=== PATIENT | male | born 2000 | race Caucasian/White ===

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

== ENCOUNTER 2018-01-03 10:54 | Day surgery (SDC) | payer OTHER ==
[~2018-01-03 10:54] MED LIST changes: +Buffered Lidocaine 0.9% SYRIN* 5 ML/SYR SYRINGE INTRADERM ONE; +Sodium Citrate/Citric Acid* 15 ML UDC PO ONE; -hydrOXYzine HCL TAB* 50 MG ONE
[2018-01-03] MEDS ORDERED: Sodium Citrate/Citric Acid* 15 ML UDC ONE (10:59)
[2018-01-03] MEDS ORDERED: ceFAZolin 2 GM PREMIX in ORs 2 GM/50 ML BAG IVPB ONE (10:59)
[2018-01-03] MEDS ORDERED: fentaNYL* 50 MCG/ML 2 ML VIAL (100 MCG VIAL) ONE (11:30)
[2018-01-03] MEDS ORDERED: Lidocaine 1% INJ* 10 MG/ML 30 ML SDV ONE (11:35)
[2018-01-03] MEDS ORDERED: ROPIVACAINE 5 MG/ML 30 ML BTL (0.5%) ONE (11:35)
[2018-01-03] MEDS ORDERED: Propofol* 10 MG/ML 20 ML BTL IV PUSH ONE (11:54)
[2018-01-03] MEDS ORDERED: Dexamethasone IV* 4 MG/ML 1 ML (4 MG) ONE (11:54)
[2018-01-03] MEDS ORDERED: Ketorolac INJ* 30 MG/ML 1 ML VIAL ONE (11:54)
[2018-01-03] MEDS ORDERED: Lidocaine 2% PF * 5 ML VIAL ONE (11:54)
[2018-01-03] MEDS ORDERED: Naloxone* 0.4 MG/ML 1 ML VIAL IV PRN (12:06)
[2018-01-03] MEDS ORDERED: fentaNYL* 50 MCG/ML 2 ML VIAL (100 MCG VIAL) IV PRN (12:06)
[2018-01-03 13:04] VITALS: BP 120/78
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
== END 2018-01-03 13:18 | disposition home or self-care (01) ==
LOC: OREAST 10:54
PROVIDERS: ATTEND Orthopaedic Surgery
DX: S62.306A Unspecified fracture of fifth metacarpal bone, right hand, initial encounter for closed fracture (principal); W22.8XXA Striking against or struck by other objects, initial encounter; Y92.9 Unspecified place or not applicable; Z72.0 Tobacco use; F41.9 Anxiety disorder, unspecified
CPT/HCPCS: 76000; A9270-GY; C1713; J0690; J1100; J1885; J2704; J2795; J3010

== ENCOUNTER 2018-10-30 11:08 | Emergency (ER) | payer SELFPAY ==
[2018-10-30 11:30] VITALS: BP 98/58
--- NOTE | 2018-10-30 12:36 | UC ---
Throat Pain/Nasal Ayden HPI - HPI Summary HPI Summary: Patient is a 18yo male presenting with nasal congestion and sore throat x2 days. He says his congestion began with pain in his sinuses that has since resolved. Notes nasal discharge and loss of voice since last night. Notes headache and fatigue. Denies ear pain. Denies cough, shortness of breath, and wheezing. Denies fever and chills. Denies n/v/d. Says he has take ibuprofen with some relief. - History of Current Complaint Chief Complaint: UCRespiratory Stated Complaint: CONGESTED Time Seen by Provider: 10/30/18 11:58 Hx Obtained From: Patient Onset/Duration: Lasting Days Severity: Mild Pain Intensity: 1 Pain Scale Used: 0-10 Numeric Cough: None - Allergies/Home Medications Allergies/Adverse Reactions: Allergies Allergy/AdvReac Type Severity Reaction Status Date / Time seasonal allergies Allergy Mild Eyes Uncoded 10/30/18 11:30 Itchy/Swollen/Red/Watery Home Medications: Home Medications NK [No Home Medications Reported] 10/30/18 [History Confirmed 10/30/18] PMH/Surg Hx/FS Hx/Imm Hx - Surgical History Surgical History: Yes Surgery Procedure, Year, and Place: Tonsillectomy 2001 - Family History Known Family History: Positive: Other, Non-Contributory Family History: Father - Allergies and chronic sinusitis - Social History Alcohol Use: Occasionally Substance Use Type: Marijuana Substance Use Comment - Amount & Last Used: daily Smoking Status (MU): Current Some Day Smoker Type: eCigarettes Amount Used/How Often: 12 times daily Household Exposure Type: Cigarettes - Immunization History Most Recent Influenza Vaccination: not this season Most Recent Pneumonia Vaccination: none Vaccination Up to Date: Yes Review of Systems All Other Systems Reviewed And Are Negative: No Constitutional: Positive: Fatigue. Negative: Fever, Chills Eyes: Positive: Negative ENT: Positive: Sore Throat, Nasal Discharge, Sinus Congestion, Sinus Pain/ Tenderness - notes sinus pain has resolved since initial onset. Negative: Ear Ache Respiratory: Positive: Negative. Negative: Shortness Of Breath, Cough Cardiovascular: Positive: Negative Gastrointestinal: Negative: Abdominal Pain, Vomiting, Diarrhea, Nausea Genitourinary: Positive: Negative Musculoskeletal: Positive: Myalgia Neurological: Positive: Headache Physical Exam Triage Information Reviewed: Yes Appearance: Well-Appearing, Well-Nourished Vital Signs: Initial Vital Signs Temp 98 F 10/30/18 11:24 Pulse 85 10/30/18 11:24 Resp 16 10/30/18 11:24 BP 98/58 10/30/18 11:24 Pulse Ox 98 10/30/18 11:24 Vital Signs Reviewed: Yes Eyes: Positive: Conjunctiva Clear ENT: Positive: Pharyngeal erythema, Nasal congestion, Nasal drainage, TMs normal , Hoarse voice. Negative: TM bulging, TM dull, TM red, Tonsillar swelling, Tonsillar exudate Neck exam: Normal Neck: Positive: Supple, Nontender, No Lymphadenopathy Respiratory: Positive: Lungs clear, Normal breath sounds. Negative: Crackles, Wheezing Cardiovascular Exam: Normal Cardiovascular: Positive: RRR, Pulses Normal Throat Pain/Nasal Course/Dx - Course Course Of Treatment: Discussed with patient to continue taking over the counter pain and cough/cold medications as directed for relief of upper respiratory symptoms. Patient should rest his voice as much as possible and drink plenty of fluids. He should return or follow up with PCP if symptoms worsen or do not resolve within the next week. Patient voiced understanding and agreed to treatment plan. - Differential Dx/Diagnosis Provider Diagnosis: Laryngitis, Upper respiratory infection Discharge ED - Sign-Out/Discharge Documenting (check all that apply): Patient Departure All imaging exams completed and their final reports reviewed: No Studies - Discharge Plan Condition: Stable Disposition: HOME Patient Education Materials: Laryngitis (ED), Upper Respiratory Infection (ED) Referrals: Radha Mackay DO [Primary Care Provider] - If Needed Additional Instructions: Continue taking over the counter pain and cough/cold medications as directed for relief of upper respiratory symptoms. Rest your voice as much as possible and drink plenty of fluids. Return if symptoms worsen or do not resolve within the next week. - Billing Disposition and Condition Condition: STABLE Disposition: Home
== END 2018-10-30 12:41 | disposition home or self-care (01) ==
LOC: UCEAST 11:08
DX: J06.9 Acute upper respiratory infection, unspecified (principal); J04.0 Acute laryngitis; F17.210 Nicotine dependence, cigarettes, uncomplicated
CPT/HCPCS: 99211; G0463

== ENCOUNTER 2019-05-11 15:15 | Emergency (ER) | payer OTHER ==
--- OUTSIDE RECORDS SUMMARY | 2019-05-11 15:29 | XMS REPORT | Continuity of Care Document ---
:2000 External Reference #:[id number] Author Name Radha Mackay D.O. Address [address] [place] [address] Care Team Providers Name Role Phone Radha Mackay DO - Pediatrics Care Team Information Mold Technician [facility] Care Team Information Mold Technician [phone] Caty Das M.D. - Orthopaedic Care Team Information Mold Technician Surgery Problems Active Problems Provider Date Pectus excavatum Jacob Montiel M.D. Onset: 06/10/2013 Disorders of initiating and maintaining Radha Mackay D.O. Onset: 01/06/2018 sleep Moderate recurrent major depression Radha Mackay D.O. Onset: 01/06/2018 Social History Type Date Description Comments Sex Unknown Tobacco Use Start: Unknown Patient has never smoked Smoking Status Reviewed: 12/06/17 Patient has never smoked Allergies, Adverse Reactions, Alerts Description No Known Drug Allergies Medications Active Medications SIG Qnty Indications Ordering Date Provider Albuterol Sulfate HFA inhale 2 puffs 8.500gm R06.2 Radha Mackay, 2019 every 4 - 6 D.O. 108(90Base) mcg/Act hours as needed Aerosol Bupropion 1 by mouth every 30tabs F33.1 Radha Mackay, 03/24/2019 Hydrochloride ER (XL) day D.O. 150mg Tablets ER 24HR Mirtazapine 1 tablets at 30tabs F51.01 Radha Mackay, 01/06/2018 15mg Tablets bedtime D.O. Immunizations CPT Code Status Date Vaccine Lot # [id number] Given 08/25/2015 Meningococcal A,[id number],Y,W135 (Menactra) [id number] Preservative Free 06022 Given 01/22/2014 Flu Mist Quadrivalent [id number] 22647 Given 12/25/2012 Flu Mist Quadrivalent [id number] 14524 Given 12/19/2011 Flu Vacc Preserv Free Trivalent 3+yrs [id number] 28663 Given 06/19/2011 HPV 4 Gardasil 4 [id number] 79525 Given 02/06/2011 HPV 4 Gardasil 4 [id number] 90301 Given 12/06/2010 Flu Vacc Preserv Free Trivalent 3+yrs [id number] 28738 Given 12/06/2010 HPV 4 Gardasil 4 [id number] 90479 Given 11/28/2009 Meningococcal A,C,Y,W135 (Menactra) [id number] Preservative Free 58769 Given 11/28/2009 Flu Vacc Preserv Free Trivalent 3+yrs [id number] 70067 Given 11/19/2008 TdaP Immunization Age 7+ [id number] 38092 Given 11/19/2008 Flu Vacc Preserv Free Trivalent 3+yrs [id number] 37478 Given 11/20/2007 Varicella (Chicken Pox) Immunization [id number] 67670 Given 07/09/2002 DTaP Immunization under age 7 28299 Given 07/09/2002 MMR Virus Immunization 84780 Given 07/09/2002 Poliomyelitis Immunization 99706 Given 11/10/1999 DTaP & Hib Immunization 85202 Given 11/10/1999 Poliomyelitis Immunization 78958 Given 05/03/1999 Varicella (Chicken Pox) Immunization 54629 Given 05/03/1999 MMR Virus Immunization 12325 Given 1998 Hib/Hep B Combination Vaccine 60845 Given 1998 DTaP Immunization under age 7 52086 Given 1998 Hib Vaccine 20666 Given 1998 Rotavirus Vaccine 14369 Given 1998 DTaP Immunization under age 7 30386 Given 1998 Poliomyelitis Immunization 88868 Given 1998 Hib/Hep B Combination Vaccine 68591 Given 1998 Poliomyelitis Immunization 22309 Given 1998 DTaP Immunization under age 7 33885 Given 1998 Rotavirus Vaccine 80366 Given 1998 Hepatitis B Imm Age 0 to 19yr Vital Signs Date Vital Result Comment 03/24/2019 7:58am Height 73 inches 6'1" Weight 143.00 lb Weight 64.865 kg Heart Rate 103 /min BP Systolic 103 mmHg BP Diastolic 69 mmHg BMI (Body Mass Index) 18.9 kg/m2 03/11/2018 9:14am Height 72.75 inches 6'0.75" Height Percentile 87 % Weight 133.00 lb Weight 60.329 kg Weight Percentile 15th Heart Rate 81 /min BP Systolic 125 mmHg BP Diastolic 76 mmHg BMI (Body Mass Index) 17.7 kg/m2 Body Mass Index Percentile 3 % Results Test Acquired Date Facility Test Result H/L Range Note Urinalysis Profile 03/06/2019 [facility] Urine Color Yellow [address] [place] [address] [phone] Urine Appearance Clear Urine Specific [place] 1.011 Normal 1.010-1.030 Urine pH 7.0 Normal 5-9 Urine Urobilinogen Negative Negative Urine Ketones Negative Negative Urine Protein Negative Negative Urine Leukocytes Negative Negative Urine Blood Negative Negative Urine Nitrite Negative Negative Urine Bilirubin Negative Negative Urine Glucose Negative Negative CBC Auto 03/06/2019 [facility] White Blood 9.8 10^3/uL Normal 3.5-10.[address] [place] [address] [phone] Red Blood Count 4.79 10^6/uL Normal 4.18-5.48 Hemoglobin 15.2 g/dL Normal 14.0-18.0 Hematocrit 45 % Normal 42-52 Mean Corpuscular Volume 93 fL Normal 80-94 Mean Corpuscular Hemoglobin 32 pg High 27-31 Mean Corpuscular HGB Conc 34 g/dL Normal 31-36 Red Cell Distribution Width 14 % Normal 10-15 Platelet Count 212 10^3/uL Normal 150-450 Mean Platelet Volume 8.1 fL Normal 7.4-10.4 Abs Neutrophils 6.9 10^3/uL Normal 1.5-7.7 Abs Lymphocytes 2.1 10^3/uL Normal 1.0-4.8 Abs Monocytes 0.7 10^3/uL Normal 0-0.8 Abs Eosinophils 0.1 10^3/uL Normal 0-0.6 Abs Basophils 0.0 10^3/uL Normal 0-0.2 Abs Nucleated RBC 0.0 10^3/uL Granulocyte % 70.1 % Lymphocyte % 21.4 % Monocyte % 7.0 % Eosinophil % 1.1 % Basophil % 0.4 % Nucleated Red Blood Cells % 0.0 Urine Drug 03/06/2019 [facility] Urine None Detected None Detect SCR ED & [address] [facility] [place] [address] Screen [phone] Urine Barbiturates Screen None Detected None Detect Urine Benzodiazepine Screen None Detected None Detect Urine Cannabinoids Screen Presumptive Posi <SEE NOTE> Abnormal None Detect 1 Urine Cocaine Screen None Detected None Detect Urine Opiates Screen Presumptive Posi <SEE NOTE> Abnormal None Detect 2 Urine Phencyclidine Screen None Detected None Detect 3 Laboratory test 03/06/2019 [facility] Lactic Acid 1.4 mmol/L Normal 0.5-2.0 4 finding [address] [place] [address] [phone] Comp Metabolic 03/06/2019 [facility] Sodium 138 mmol/L Normal 135-145 Panel [address] [place] [address] [phone] Potassium 3.7 mmol/L Normal 3.5-5.0 Chloride 104 mmol/L Normal 101-111 Co2 Carbon Dioxide 26 mmol/L Normal 22-32 Anion Gap 8 mmol/L Normal 2-11 Glucose 96 mg/dL Normal 70-100 Blood Urea Nitrogen 9 mg/dL Normal 6-24 Creatinine 0.88 mg/dL Normal 0.67-1.17 BUN/Creatinine Ratio 10.2 Normal 8-20 Calcium 9.9 mg/dL Normal 8.6-10.3 Total Protein 7.1 g/dL Normal 6.4-8.9 Albumin 4.5 g/dL Normal 3.2-5.2 Globulin 2.6 g/dL Normal 2-4 Albumin/Globulin Ratio 1.7 Normal 1-3 Total Bilirubin 0.40 mg/dL Normal 0.2-1.0 Alkaline Phosphatase 103 U/L Normal 34-104 Alt 11 U/L Normal 7-52 Ast 17 U/L Normal 13-39 Egfr Non- 110.4 >60 Egfr 133.6 >60 5 Laboratory test 03/06/2019 [facility] Acetaminophen < 15 g/mL [address] [place] [address] [phone] Alcohol < 10 mg/dL Normal <10 Salicylate < 2.50 mg/dL <30 TSH (Thyroid Stim Horm) 3.20 mcIU/mL Normal 0.34-5.60 1 Presumptive Positive Presumptive positive results are unconfirmed. 2 Presumptive Positive Presumptive positive results are unconfirmed. 3 The urine specimen was tested at the listed cutoffs: Drug class test level (ng/mL) Amphetamines 500 Barbiturates 200 Benzodiazepine metabolites 200 Cocaine metabolites 150 Cannabinoids 50 Opiates 300 Pcp 25 Specimen was received without chain of custody. Results should be used for medical purposes only. 4 [facility] Severe Sepsis and Septic Shock Management Bundle Measure requires all lactic acids initially measuring >2.0 mmol/L be repeated. 5 Because ethnic data is not always [...] concentration: <50 ug/mL Toxic concentration: >120 ug/mL Procedures Description No Information Available Medical Devices Description No Information Available Encounters Description No Information Available Assessments Date Code Description Provider 03/24/2019 F33.1 Major depressive disorder, recurrent, moderate Radha Mackay D.O. 03/24/2019 F51.01 Primary insomnia Radha Mackay D.O. Plan of Treatment 03/24/2019 - Radha Mackay D.O.F33.1 Major depressive disorder, recurrent, moderateNew Medication:Bupropion Hydrochloride ER (XL) 150 mg - 1 by mouth every dayFollow up:[facility].01 Primary insomnia Functional Status Description No Information Available Mental Status Description No Information Available Referrals Description No Information Available
[2019-05-11 15:52] VITALS: BP 113/69
--- NOTE | 2019-05-11 15:57 | UC ---
Bite Injury/Animal HPI - HPI Summary HPI Summary: 19-year-old male comes in with chief complaint of a tick bite with a rash. 4 to 5 days ago noticed a tick attached to his skin on the left lower quadrant of his abdomen which he pulled out. He thinks that had stayed in there. In the last day or 2 he's developed a rash around the tick bite that does itch. Fevers or chills feels well otherwise. - History of Current Complaint Chief Complaint: UCSkin Stated Complaint: TICK BITE Time Seen by Provider: 05/11/19 15:34 Pain Intensity: 0 - Allergies/Home Medications Allergies/Adverse Reactions: Allergies Allergy/AdvReac Type Severity Reaction Status Date / Time No Known Drug Allergies Allergy See Comment Verified 05/11/19 15:39 seasonal allergies Allergy Mild Eyes Uncoded 05/11/19 15:39 Itchy/Swollen/Red/Watery Home Medications: Home Medications Bupropion XL* [Wellbutrin XL *] 150 mg PO 0900 #14 tab 03/13/19 [Rx Confirmed ] Mirtazapine TAB* [Remeron TAB*] 7.5 mg PO BEDTIME PRN #14 tab 03/13/19 [Rx Confirmed 05/11/19] Naloxone Nasal [place]* [Narcan Nasal [place]] 4 mg INTRANASAL .REPEAT Q2M to Q3M PRN #1 nasal.spr 03/13/19 [Rx Confirmed 05/11/19] DOXYcycline CAP(*) [DOXYcycline 100MG CAP(*)] 100 mg PO BID #28 cap 05/11/19 [Rx ] PMH/Surg Hx/FS Hx/Imm Hx Previously Healthy: Yes - Surgical History Surgical History: Yes Surgery Procedure, Year, and Place: Tonsillectomy 2001. right hand repair - Family History Known Family History: Positive: Unknown - Adopted Family History: Father - Allergies and chronic sinusitis - Social History Alcohol Use: Occasionally Alcohol Amount: " A couple of drinks weekly, not a lot" Substance Use Type: Marijuana Substance Use Comment - Amount & Last Used: daily Smoking Status (MU): Current Some Day Smoker Type: eCigarettes Amount Used/How Often: 12 times daily Household Exposure Type: Cigarettes - Immunization History Most Recent Influenza Vaccination: 03/13/19 Most Recent Pneumonia Vaccination: none Vaccination Up to Date: Yes Review of Systems All Other Systems Reviewed And Are Negative: Yes Constitutional: Positive: Negative Skin: Positive: Other - see hpi Eyes: Positive: Negative ENT: Positive: Negative Respiratory: Positive: Negative Cardiovascular: Positive: Negative Gastrointestinal: Positive: Negative Motor: Positive: Negative Neurovascular: Positive: Negative Musculoskeletal: Positive: Negative Neurological/Mental Status: Positive: Negative Psychological: Positive: Negative Is Patient Immunocompromised?: No Physical Exam Triage Information Reviewed: Yes Appearance: Well-Appearing, No Pain Distress, Well-Nourished Vital Signs: Initial Vital Signs Temp 98.8 F 05/11/19 15:51 Pulse 95 05/11/19 15:51 Resp 18 05/11/19 15:51 BP 113/69 05/11/19 15:51 Pulse Ox 97 05/11/19 15:51 Vital Signs Reviewed: Yes Eye Exam: Normal Eyes: Positive: Conjunctiva Clear Neck: Positive: Supple Respiratory: Positive: No respiratory distress Musculoskeletal: Positive: Strength Intact, ROM Intact Neurological: Positive: Alert, Muscle Tone Normal Psychological: Positive: Age Appropriate Behavior Skin: Positive: Other - Left lower quadrant of the abdomen there is a 3 cm elliptical area of erythema in the center of his pinpoint area with scab of the 1 mm black foreign body in the middle. Bite Injury Course/Dx - Course Course Of Treatment: With a tick bite with rash associated with this this can be early Lyme disease therefore I'm treating with doxycycline 100 mg by mouth twice a day for 14 days. Patient's to get reevaluated is getting worse or any questions or concerns. - Differential Dx/Diagnosis Provider Diagnosis: Tick bite of abdomen Discharge ED - Sign-Out/Discharge Documenting (check all that apply): Patient Departure All imaging exams completed and their final reports reviewed: No Studies - Discharge Plan Condition: Stable Disposition: HOME Prescriptions: DOXYcycline CAP(*) [DOXYcycline 100MG CAP(*)] 100 mg PO BID #28 cap Patient Education Materials: Lyme Disease (ED), Tick Bite (ED) Referrals: Radha Mackay DO [Primary Care Provider] - Additional Instructions: FOLLOW UP WITH YOUR DOCTOR IF NOT COMPLETELY IMPROVED. GET REEVALUATED IF NOT IMPROVED OR WORSE; SYMPTOMS OF LYME DISEASE, YOU FEEL ILL OR ANY QUESTIONS OR CONCERNS. - Billing Disposition and Condition Condition: STABLE Disposition: Home
== END 2019-05-11 16:05 | disposition home or self-care (01) ==
LOC: UCEAST 15:15
DX: S30.861A Insect bite (nonvenomous) of abdominal wall, initial encounter (principal); R21 Rash and other nonspecific skin eruption; W57.XXXA Bitten or stung by nonvenomous insect and other nonvenomous arthropods, initial encounter; Y92.9 Unspecified place or not applicable; Z72.0 Tobacco use
CPT/HCPCS: 99212; G0463

== ENCOUNTER 2019-12-24 13:15 | Inpatient (IN) ==
[2019-12-24] MEDS ORDERED: LORazepam 2 mg VIAL 1 ml ONE (13:33)
[2019-12-24] MEDS ORDERED: diPHENhydraMINE IV 50 MG/ML 1 ml VIAL (BENADRYL) ONE ×2 (13:45→16:54)
[2019-12-24] MEDS ORDERED: Haloperidol 5 mg/ml SDV IV/IM 5 MG/ML AMP ONE ×2 (13:45→16:54)
[2019-12-24 14:22] LABS: ABS Eosinophils 0.1 10^3/ul (0-0.6); ABS Lymphocytes 1.7 10^3/ul (1.0-4.8); ABS Monocytes 0.3 10^3/ul (0-0.8); ABS Neutrophils 2.6 10^3/ul (1.5-7.7); Eosinophil % 1.9 %; Hematocrit 44 % (42-52); Lymphocyte % 35.7 %; Mean Corpuscular HGB Conc 34 g/dL (31-36); Mean Corpuscular Hemoglobin 33 pg (27-31); Mean Corpuscular Volume 96 fL (80-94); Platelet Count 237 10^3/uL (150-450); Red Blood Count 4.57 10^6 /uL (4.18-5.48); Red Cell Distribution Width 13 % (10-15); White Blood Count 4.7 10^3/uL (3.5-10.8)
[2019-12-24 15:11] LABS: ALT 14 U/L (7-52); AST 21 U/L (13-39); Albumin 4.5 g/dL (3.2-5.2); Albumin/Globulin Ratio 1.8 (1-3); Alkaline Phosphatase 101 U/L (34-104); Anion Gap 14 mmol/L (2-11); BUN/Creatinine Ratio 11.1 (8-20); Blood Urea Nitrogen 11 mg/dL (6-24); CO2 Carbon Dioxide 21 mmol/L (22-32); Calcium 9.6 mg/dL (8.6-10.3); Chloride 106 mmol/L (101-111); EGFR African American 115.5 (>60); EGFR Non-African American 95.4 (>60); Globulin 2.5 g/dL (2-4); Glucose 67 mg/dL (70-100); Potassium 3.6 mmol/L (3.5-5.0); Sodium 141 mmol/L (135-145)
[2019-12-24 15:21] LABS: Acetaminophen < 15 mcg/mL; Alcohol, S 137 mg/dL (<10); Salicylate < 2.50 mg/dL (<30)
[2019-12-24 15:26] LABS: TSH Ultra Thyroid Stim Horm 0.75 mcIU/mL (0.34-5.60)
[2019-12-24] MEDS ORDERED: Dextrose 50% VIAL 50 ml IV PRN (17:52)
[2019-12-25] MEDS ORDERED: Nicotine GUM 4MG FRUIT FLAVOR PO PRN (08:24)
[2019-12-25] MEDS: Vitamin THERAPEUTIC TAB PO SCH (12:52)
[2019-12-26 08:21] LABS: HDL Cholesterol 60.9 mg/dL
[2019-12-26] MEDS: Vitamin THERAPEUTIC TAB PO SCH (11:35)
[2019-12-26] MEDS: Al Hydrox/Mg Hydrox/Simet LIQ 30 ML UDC PO PRN (17:08)
[2019-12-27] MEDS: Vitamin THERAPEUTIC TAB PO SCH (07:46)
[2019-12-27] MEDS: Al Hydrox/Mg Hydrox/Simet LIQ 30 ML UDC PO PRN (19:02)
[2019-12-28] MEDS: Vitamin THERAPEUTIC TAB PO SCH (08:14)
[2019-12-29] MEDS: Vitamin THERAPEUTIC TAB PO SCH (07:47)
[2019-12-29] MEDS ORDERED: Benzocaine (DENTAL) 10% TOP.GEL TOPICAL PRN (11:04)
[2019-12-29] MEDS ORDERED: Gadoteridol (CONTRAST) 279.3 MG/ML 10 ML IV ONE (18:52)
[2019-12-30] MEDS: Vitamin THERAPEUTIC TAB PO SCH (10:19)
[2019-12-30 13:50] LABS: Albumin 4.9 g/dL (3.2-5.2); BUN/Creatinine Ratio 16.7 (8-20); Calcium 10.1 mg/dL (8.6-10.3); EGFR African American 104.4 (>60); EGFR Non-African American 86.3 (>60); Globulin 2.5 g/dL (2-4); Potassium 4.1 mmol/L (3.5-5.0); Total Bilirubin 0.4 mg/dL (0.2-1.0); Total Protein 7.4 g/dL (6.4-8.9)
[2019-12-31] MEDS: Vitamin THERAPEUTIC TAB PO SCH (08:27)
[2020-01-01] MEDS: Vitamin THERAPEUTIC TAB PO SCH (09:14)
[2020-01-01 10:44] VITALS: BP 113/54
== END 2020-01-01 10:00 | disposition home or self-care (01) | DRG 751 ==
LOC: ED 13:15 → BSU 12-25 08:24
PROVIDERS: ADMIT Psychiatry & Neurology Psychiatry; ATTEND Psychiatry & Neurology Psychiatry

== ENCOUNTER 2020-12-14 14:44 | Inpatient (IN) ==
[2020-12-14] MEDS ORDERED: NS 0.9% 1000 ml BAG 1,000 ML IV ONE ×2 (15:01→18:07)
[2020-12-14] MEDS ORDERED: LORazepam 2 mg VIAL 1 ml ONE ×2 (15:12→19:50)
[2020-12-14] MEDS ORDERED: LORazepam 2 mg VIAL 1 ml IV PUSH ONE ×4 (15:13→19:59)
[2020-12-14] MEDS ORDERED: Lorazepam PYXIS KEY PRN ×4 (15:13→19:59)
[2020-12-14] MEDS ORDERED: NS 0.9% 1000 ml BAG 1,000 ML IV SCH (15:15)
[2020-12-14] MEDS ORDERED: Albuterol HFA INHALER 8 gm MDI INH ONE (15:52)
[2020-12-14 15:59] LABS: ABS Lymphocytes 1.6 10^3/ul (1.0-4.8); ABS Monocytes 0.5 10^3/ul (0-0.8); ABS Neutrophils 2.8 10^3/ul (1.5-7.7); Eosinophil % 0.7 %; Hematocrit 46 % (42-52); Hemoglobin 15.8 g/dL (14.0-18.0); Lymphocyte % 32.9 %; Mean Corpuscular HGB Conc 35 g/dL (31-36); Mean Corpuscular Hemoglobin 32 pg (27-31); Mean Corpuscular Volume 94 fL (80-94); Mean Platelet Volume 8.1 fL (7.4-10.4); Platelet Count 274 10^3/uL (150-450); Red Blood Count 4.88 10^6 /uL (4.18-5.48); Red Cell Distribution Width 13 % (10-15); White Blood Count 4.9 10^3/uL (3.5-10.8)
[2020-12-14 16:01] LABS: Urine Appearance Clear; Urine Bilirubin Negative (Negative); Urine Blood Negative (Negative); Urine Color Colorless; Urine Glucose Negative (Negative); Urine Ketones Negative (Negative); Urine Nitrite Negative (Negative); Urine Protein Negative (Negative); Urine Specific Gravity 1.001 (1.002-1.030); Urine Urobilinogen Negative (Negative)
[2020-12-14 16:18] LABS: ALT 13 U/L (7-52); AST 19 U/L (13-39); Albumin 4.9 g/dL (3.2-5.2); Albumin/Globulin Ratio 1.7 (1-3); Alkaline Phosphatase 88 U/L (35-149); Anion Gap 10 mmol/L (2-11); Blood Urea Nitrogen 10 mg/dL (6-24); CO2 Carbon Dioxide 25 mmol/L (22-32); Calcium 10.5 mg/dL (8.6-10.3); Chloride 104 mmol/L (101-111); Globulin 2.9 g/dL (2-4); Glucose 81 mg/dL (70-100); Potassium 3.7 mmol/L (3.5-5.0); Sodium 139 mmol/L (135-145); Total Protein 7.8 g/dL (6.4-8.9)
[2020-12-14 16:20] LABS: Alcohol, S 65 mg/dL (<13); Lithium < 0.10 mmol/L (0.6-1.2); Salicylate < 2.50 mg/dL (<30)
[2020-12-14 16:23] LABS: Acetaminophen < 15 mcg/mL; Urine Benzodiazepine Screen Presumptive Positive (None Detect); Urine Cannabinoids Screen None Detected (None Detect); Urine Opiates Screen None Detected (None Detect)
[2020-12-14] MEDS ORDERED: diPHENhydraMINE IV 50 MG/ML 1 ml VIAL (BENADRYL) SLOW PUSH ONE (16:28)
[2020-12-14] MEDS ORDERED: diPHENhydraMINE IV 50 MG/ML 1 ml VIAL (BENADRYL) ONE (16:28)
[2020-12-14 16:33] LABS: TSH Ultra Thyroid Stim Horm 1.45 mcIU/mL (0.34-5.60)
[2020-12-14 16:48] LABS: PCO2 Arterial 43 mmHg (35-45); PO2 Arterial 71 mmHg (80-100)
[2020-12-14 17:00] LABS: Creatine Kinase 159 U/L (10-223)
[2020-12-14 18:30] LABS: Rapid COVID-19 Molecular Undetected (Undetected)
[2020-12-14 18:50] LABS: Anion Gap 6 mmol/L (2-11); Blood Urea Nitrogen 9 mg/dL (6-24); CO2 Carbon Dioxide 28 mmol/L (22-32); Calcium 9.4 mg/dL (8.6-10.3); Chloride 107 mmol/L (101-111); Glucose 78 mg/dL (70-100); Lithium < 0.10 mmol/L (0.6-1.2); Potassium 3.7 mmol/L (3.5-5.0); Sodium 141 mmol/L (135-145)
[2020-12-14] MEDS ORDERED: Ondansetron 4 mg VIAL 2 MG/ML 2 ml VIAL IV ONE (20:00)
[2020-12-14] MEDS ORDERED: Haloperidol 5 mg/ml SDV IV/IM 5 MG/ML AMP IM ONE (20:08)
[2020-12-14] MEDS ORDERED: diPHENhydraMINE IV 50 MG/ML 1 ml VIAL (BENADRYL) IV ONE (20:08)
[2020-12-14] MEDS ORDERED: Lactated Ringers 1000 ml BAG 1,000 ML IV ONE (20:56)
[2020-12-14 21:45] LABS: Blood Urea Nitrogen 9 mg/dL (6-24); CO2 Carbon Dioxide 25 mmol/L (22-32); Calcium 8.3 mg/dL (8.6-10.3); Glucose 77 mg/dL (70-100); Lithium < 0.10 mmol/L (0.6-1.2); Potassium 3.7 mmol/L (3.5-5.0); Sodium 142 mmol/L (135-145)
[2020-12-14 21:47] LABS: Anion Gap 5 mmol/L (2-11); Chloride 112 mmol/L (101-111)
[2020-12-14] MEDS: KCL 20 MEQ/100 ML IVPREMIX 20 MEQ/100 ML BAG IV SCH (23:58)
[2020-12-15] MEDS: KCL 20 MEQ/100 ML IVPREMIX 20 MEQ/100 ML BAG IV SCH (02:06)
[2020-12-15 06:39] LABS: Calcium 8.9 mg/dL (8.6-10.3); Potassium 4.2 mmol/L (3.5-5.0)
[2020-12-15] MEDS ORDERED: LORazepam 2 mg VIAL 1 ml IV PUSH PRN (09:25)
[2020-12-15] MEDS ORDERED: Lorazepam PYXIS KEY PRN (09:25)
[2020-12-15 12:08] LABS: Anion Gap 5 mmol/L (2-11); Blood Urea Nitrogen 9 mg/dL (6-24); CO2 Carbon Dioxide 27 mmol/L (22-32); Chloride 107 mmol/L (101-111); Glucose 80 mg/dL (70-100); Magnesium 1.8 mg/dL (1.9-2.7); Phosphorus 4.1 mg/dL (2.5-5.0); Sodium 139 mmol/L (135-145)
[2020-12-15 12:23] LABS: Lithium < 0.10 mmol/L (0.6-1.2); Valproic Acid < 13.0 mcg/mL (50-100)
[2020-12-15] MEDS: Lactated Ringers 1000 ml BAG 1,000 ML IV SCH (12:34)
[2020-12-15] MEDS: Thiamine 100 MG/ML 2 ml VIAL 500 MG in NS 0.9% 250 ml 250 ML IV SCH ×2 (13:14→23:55)
[2020-12-15] MEDS ORDERED: Magnesium Sulfate 2 gm BAG 2 GM/50 ML BAG IVPB ONE (14:51)
[2020-12-15] MEDS ORDERED: diphenhydrAMINE 50 MG/ML INJ SYRINGE *CHOA ONE (15:54)
[2020-12-15] MEDS ORDERED: Haloperidol 5 mg/ml SDV IV/IM 5 MG/ML AMP ONE (15:54)
[2020-12-16] MEDS: Lactated Ringers 1000 ml BAG 1,000 ML IV SCH (01:58)
[2020-12-16 05:42] LABS: Albumin 3.3 g/dL (3.2-5.2); Albumin/Globulin Ratio 1.6 (1-3); Calcium 7.9 mg/dL (8.6-10.3); Globulin 2.1 g/dL (2-4); Magnesium 1.8 mg/dL (1.9-2.7); Potassium 3.6 mmol/L (3.5-5.0); Total Bilirubin 0.3 mg/dL (0.2-1.0); Total Protein 5.4 g/dL (6.4-8.9)
[2020-12-16] MEDS ORDERED: Magnesium Sulfate 2 gm BAG 2 GM/50 ML BAG IVPB ONE (07:42)
[2020-12-16] MEDS ORDERED: KCL 10 MEQ/50 ML IVPREMIX 10 MEQ/50 ML BAG IV SCH (08:00)
[2020-12-16] MEDS ORDERED: Potassium Chlor 20 meq TAB.ER PO ONE (09:27)
[2020-12-16 10:00] VITALS: BP 98/83
[2020-12-16] MEDS ORDERED: Thiamine 100 MG/ML 2 ml VIAL 100 MG in NS 0.9% 50 ML 50 ML IV SCH (10:00)
[2020-12-16] MEDS ORDERED: Haloperidol 5 mg/ml SDV IV/IM 5 MG/ML AMP ONE (15:55)
[2020-12-16] MEDS ORDERED: diphenhydrAMINE 50 MG/ML INJ SYRINGE *CHOA ONE (15:55)
== END 2020-12-16 11:20 | disposition home or self-care (01) | DRG 816 ==
LOC: ED 14:44 → ICU 21:19 → SUATTDRO 21:19 → ICU 21:41
PROVIDERS: ADMIT Hospitalist; ATTEND Internal Medicine

== ENCOUNTER 2021-04-11 17:31 | Inpatient (IN) ==
[2021-04-11] MEDS ORDERED: Tetan/Diph/Pertus SYR(Tdap) 0.5 ML SYR(BOOSTRIX) use SYR contains LATEX IM ONE (18:27)
[2021-04-11 18:42] LABS: ABS Eosinophils 0.2 10^3/ul (0-0.6); ABS Lymphocytes 2.9 10^3/ul (1.0-4.8); ABS Monocytes 0.6 10^3/ul (0-0.8); ABS Neutrophils 4.7 10^3/ul (1.5-7.7); Eosinophil % 2.1 %; Hematocrit 46 % (42-52); Hemoglobin 15.7 g/dL (14.0-18.0); Lymphocyte % 34.8 %; Mean Corpuscular HGB Conc 34 g/dL (31-36); Mean Corpuscular Hemoglobin 32 pg (27-31); Mean Corpuscular Volume 94 fL (80-94); Mean Platelet Volume 8.7 fL (7.4-10.4); Nucleated Red Blood Cells % 0.1; Platelet Count 255 10^3/uL (150-450); Red Blood Count 4.88 10^6 /uL (4.18-5.48); Red Cell Distribution Width 14 % (10-15); White Blood Count 8.4 10^3/uL (3.5-10.8)
[2021-04-11 18:45] LABS: Urine Appearance Clear; Urine Bilirubin Negative (Negative); Urine Blood Negative (Negative); Urine Color Straw; Urine Glucose Negative (Negative); Urine Ketones Trace (Negative); Urine Nitrite Negative (Negative); Urine Protein Negative (Negative); Urine Specific Gravity 1.008 (1.002-1.030); Urine Urobilinogen Negative (Negative)
[2021-04-11 18:59] LABS: ALT 11 U/L (7-52); AST 17 U/L (13-39); Albumin 4.7 g/dL (3.2-5.2); Albumin/Globulin Ratio 1.8 (1-3); Alkaline Phosphatase 92 U/L (35-149); Anion Gap 13 mmol/L (2-11); Blood Urea Nitrogen 22 mg/dL (6-24); CO2 Carbon Dioxide 22 mmol/L (22-32); Calcium 9.1 mg/dL (8.6-10.3); Chloride 103 mmol/L (101-111); Globulin 2.6 g/dL (2-4); Glucose 90 mg/dL (70-100); Potassium 3.4 mmol/L (3.5-5.0); Sodium 138 mmol/L (135-145); Total Protein 7.3 g/dL (6.4-8.9); eGFR CKD-EPI 123.8 (>60)
[2021-04-11 19:09] LABS: Urine Benzodiazepine Screen None Detected (None Detect); Urine Cannabinoids Screen Presumptive Positive (None Detect); Urine Opiates Screen None Detected (None Detect)
[2021-04-11 19:29] LABS: Acetaminophen < 15 mcg/mL; Alcohol, S 141 mg/dL (<13); Salicylate < 2.50 mg/dL (<30)
[2021-04-11 19:39] LABS: TSH Ultra Thyroid Stim Horm 1.16 mcIU/mL (0.34-5.60)
[2021-04-12] MEDS ORDERED: Al Hydrox/Mg Hydrox/Simet LIQ 30 ML UDC PO PRN (04:45)
[2021-04-12] MEDS ORDERED: LORazepam PO 0-6 for WAM protocol PO SCH (05:00)
[2021-04-12] MEDS ORDERED: Nicotine GUM 2MG FRUIT FLAVOR PO PRN (05:00)
[2021-04-12] MEDS ORDERED: Nicotine PATCH 21 MG/24 HR PATCH TRANSDERM SCH (09:00)
[2021-04-12] MEDS: Vitamin THERAPEUTIC TAB PO SCH (11:01)
[2021-04-12 12:22] LABS: Folate 4.29 ng/mL (5.90-24.80)
[2021-04-12 12:23] LABS: Vitamin B12 244 pg/mL (180-914)
[2021-04-12 12:26] LABS: Vitamin D Total 25(OH) 22.7 ng/mL (20-50)
[2021-04-13] MEDS ORDERED: Nicotine PATCH 21 MG/24 HR PATCH TRANSDERM SCH (09:00)
[2021-04-13] MEDS: Vitamin THERAPEUTIC TAB PO SCH (10:37)
[2021-04-14 07:20] LABS: HDL Cholesterol 64.9 mg/dL
[2021-04-14 07:48] VITALS: BP 115/62
[2021-04-14] MEDS: Vitamin THERAPEUTIC TAB PO SCH (08:16)
== END 2021-04-14 13:27 | disposition home or self-care (01) | DRG 775 ==
LOC: ED 17:31 → BSU 04-12 04:37
PROVIDERS: ADMIT Psychiatry & Neurology Psychiatry; ATTEND Psychiatry & Neurology Psychiatry